=== PATIENT | female | born 1960 | race Caucasian/White ===

== ENCOUNTER 2021-07-05 17:23 | Outpatient (CLI) | payer OTHER ==
[2021-07-05 19:55] LABS: BASOPHILS # (AUTO) 0.1 10^3/uL (0.0-0.1); BASOPHILS % (AUTO) 1.1 %; EOSINOPHILS # (AUTO) 0.2 10^3/uL (0.0-0.7); EOSINOPHILS % (AUTO) 3.2 %; HCT - HEMATOCRIT 41.5 % (37.0-47.0); HGB - HEMOGLOBIN 13.8 g/dL (12.0-16.0); LYMPHOCYTES # (AUTO) 1.2 10^3/uL (1.5-3.5); LYMPHOCYTES % (AUTO) 24.7 %; MEAN CORPUSCULAR HEMOGLOBIN 32.5 pg (27.0-31.0); MEAN CORPUSCULAR HGB CONC 33.3 g/dL (32.0-36.0); MEAN CORPUSCULAR VOLUME 97.6 fL (81.0-99.0); MEAN PLATELET VOLUME 11.1 fL (7.9-10.8); MONOCYTES # (AUTO) 0.4 10^3/uL (0.0-1.0); MONOCYTES % (AUTO) 7.4 %; NEUTROPHILS % (AUTO) 63.4 %; PLT - PLATELET COUNT 214 10^3/uL (130-450); RED BLOOD COUNT 4.25 10^6/uL (4.20-5.40); WHITE BLOOD COUNT 4.7 x10^3/uL (4.8-10.8)
[2021-07-05 20:01] LABS: ALBUMIN 4.3 g/dL (3.2-5.5); ALBUMIN/GLOBULIN RATIO 1.6 (1.0-2.2); CALCIUM 9.3 mg/dL (8.5-10.3); CREATININE 0.7 mg/dL (0.4-1.0); POTASSIUM 3.8 mmol/L (3.5-5.0)
[2021-07-07 12:52] LABS: HEPATITIS C ANTIBODY NON-REACTIVE (NON-REACTIVE)
== END 2021-07-05 17:24 | disposition home or self-care (01) ==
LOC: LAB.S 17:23
PROVIDERS: ATTEND Orthopaedic Surgery
DX: Z01.812 Encounter for preprocedural laboratory examination (principal)
CPT/HCPCS: 36415; 80053; 85025; 86803

== ENCOUNTER 2021-07-06 12:18 | Outpatient (CLI) | payer OTHER | END 2021-07-06 12:19 | disposition home or self-care (01) | LOC: LAB.N 12:18 | PROVIDERS: ATTEND Orthopaedic Surgery | DX: Z01.812 Encounter for preprocedural laboratory examination (principal); Z20.822 Contact with and (suspected) exposure to COVID-19 ==

== ENCOUNTER 2021-09-20 14:25 | Emergency (ER) | payer MEDICARE, OTHER ==
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
[2021-09-20] MEDS ORDERED: KETOROLAC 30 MG/ML VIAL IM STA (14:52)
[2021-09-20] MEDS ORDERED: ACETAMINOPHEN 325 MG TABLET PO STA (14:52)
--- NOTE | 2021-09-20 15:50 | CT Report ---
PROCEDURE: LUMBAR SPINE WO INDICATIONS: fall yesterday - lumbar/sacral pain TECHNIQUE: Noncontrast 3 mm thick sections acquired from the T12 level to the sacrum. Sagittal and coronal refo rmats were constructed. For radiation dose reduction, the following was used: automated exposure co ntrol, adjustment of mA and/or kV according to patient size. COMPARISON: None. FINDINGS: Image quality: Excellent. Bones: There is normal bony alignment. No acute vertebral body compression fractures. No suspiciou s lytic or blastic bony lesions. Central spinal caliber is of normal overall caliber. Soft tissues: Prevertebral and paraspinous soft tissues are within normal limits. The included unenha nced intra-abdominal and retroperitoneal visceral structures demonstrate no acute finding. Partially visualized lung bases are clear. T12-L1: No spinal canal or neural foraminal stenosis. L1-L2: No spinal canal or neural foraminal stenosis. L2-L3: Diffuse disc bulge and a superimposed broad-based posterior disc protrusion flattens and in dents the ventral thecal sac. There may be moderate subarticular zone stenosis on the right. Foramina l components of the disc bulge and facet hypertrophy combine to produce mild bilateral neural foramin al stenosis. L3-L4: Diffuse disc bulge flattens the ventral thecal sac. Foraminal components of the disc bulge a nd facet hypertrophy combine to produce mild bilateral neural foraminal stenosis. L4-L5: Diffuse disc bulge flattens the ventral thecal sac. Foraminal components of the disc bulge a nd facet hypertrophy combine to produce mild bilateral neural foraminal stenosis. L5-S1: Diffuse disc bulge. No mass effect upon the traversing S1 nerve roots. Mild bilateral neural foraminal narrowing. IMPRESSION: Mild neural foraminal narrowing in the lower lumbar spine. No acute finding. Reviewed by: Parth Ocasio MD on 09/20/2021 2:49 PM [facility] Approved by: Parth Ocasio MD on 09/20/2021 2:49 PM [facility] Station ID: [id number]
[2021-09-20 16:04] VITALS: BP 142/68
== END 2021-09-20 16:09 | disposition home or self-care (01) ==
LOC: ED 14:25
DX: S30.0XXA Contusion of lower back and pelvis, initial encounter (principal); S00.33XA Contusion of nose, initial encounter; S80.812A Abrasion, left lower leg, initial encounter; S80.811A Abrasion, right lower leg, initial encounter; V00.848A Other accident with standing micro-mobility pedestrian conveyance, initial encounter; Y93.89 Activity, other specified; Y92.410 Unspecified street and highway as the place of occurrence of the external cause; M51.27 Other intervertebral disc displacement, lumbosacral region; Z87.891 Personal history of nicotine dependence
CPT/HCPCS: 72131; 96372; 99282; 99284; A9270

== ENCOUNTER 2023-02-14 15:17 | Emergency (ER) | payer MEDICARE, OTHER ==
--- NOTE | 2023-02-14 15:37 | ED Physician Documentation ---
PD HPI OPHTHO - Stated complaint Stated Complaint: RT EYE DOG BITE - Chief complaint Chief Complaint: Heent - History obtained from History obtained from: Patient - History of Present Illness Timing - onset: Last night (about 3 am. she states her dog was on the bed and patient got up from bed, and as was getting back to it, disturbed the dog from sleep and it nipped single time to her, causing lacerations to right cheek and lower eyelid. She states saw "just white" for few seconds, then blurred vision. normal now.) Timing - details: Abrupt onset Location: Right (upper cheek and lower eyelid.) Associated symptoms: No: Discharge, Photophobia, Loss of vision Similar symptoms before: Has not had sx before Review of Systems Constitutional: denies: Fever, Chills Eyes: denies: Loss of vision Neurologic: denies: Difficulty speaking, Altered mental status, Headache PD PAST MEDICAL HISTORY - Past Medical History Cardiovascular: None Musculoskeletal: None - Past Surgical History Past Surgical History: Yes General: Cholecystectomy, Appendectomy - Present Medications Home Medications: Ambulatory Orders Medication Instructions Recorded Confirmed Oxycodone HCl/Acetaminophen 1 each PO Q6H PRN #12 tablet 09/20/21 [Percocet 5-325 mg Tablet] Amox/Clav 875/125 [Augmentin] 1 each PO Q12H 5 Days #10 tablet 02/14/23 Ciprofloxacin HCl [Ciloxan] 1 applic RIGHTEYE QID 5 Days #3.5 02/14/23 gm - Allergies Allergies/Adverse Reactions: Allergies Allergy/AdvReac Type Severity Reaction Status Date / Time No Known Drug Allergies Allergy Verified 02/14/23 15:34 - Social History Does the pt smoke?: Yes Smoking Status: Former smoker Does the pt drink ETOH?: Yes Does the pt have substance abuse?: No - Immunizations Immunizations are current?: Yes PD ED PE NORMAL - Vitals Vital signs reviewed: Yes - General General: Alert and oriented X 3, No acute distress, Well developed/nourished - HEENT HEENT: PERRL, EOMI, Other (the upper cheek with abrasions and small 1 cm lac that is fairly well in place. Right lower eyelid with laceration in the middle, about 1/2 cm but it does cause forked split of the eyelid margin. ) - Neck Neck: Supple, no meningeal sign, No adenopathy PD ED PE EXPANDED - Eyes Eyes: Visual acuity - see nn, PERRL, EOMI, Corneal abrasion (superficial dye uptake at 7 ockock psotion, linear about 3-4 mm length.), Fluorescein uptake, Anterior chambers clear, Normal fundi. No: Hyphema, Retinal hemorrhage Results - Vitals Vitals: Vital Signs - 24 hr 02/14/23 02/14/23 02/14/23 15:30 15:34 16:04 Temperature 37.1 C 37.1 C Heart Rate 115 H 115 H 100 Respiratory 18 18 16 Rate Blood Pressure 171/88 H 171/88 H 150/80 H O2 Saturation 100 100 100 Oxygen O2 Source Room air PD Medical Decision Making - ED course Complexity details: considered differential, d/w patient, d/w data virtualization consultant (talked with Brett Frances, ophthalmology, who is available to see patient in office in 2 days. To give abx meanwhile and reassess in 2 days, for delayed primary closure. ) ED course: with patient consent, I took picture of her eyelid/cheek and texted to Dr. Santiago iqbal, without any identifiers and closeup so not able to distinguish whole face. Departure - Departure Disposition: Home, Self Care Clinical Impression: Eyelid laceration, Corneal abrasion, Dog bite Condition: Stable Record reviewed to determine appropriate education?: Yes Follow-Up: Brett Frances MD [Provider Admit Priv/Credential] - Prescriptions: Amox/Clav 875/125 [Augmentin] 1 each PO Q12H 5 Days #10 tablet Ciprofloxacin HCl [Ciloxan] 1 applic RIGHTEYE QID 5 Days #3.5 gm Comments: I talked to one of our well servicing rig operator on staff, Brett Frances, who said he is able to repair your eyelid. Because of it being a contaminated injury (dog bite), a delayed primary closure with some antibiotics over the next few days is preferable to have less likelihood for infection. Call his office today or first thing in the morning. He will let the office know that he wants you to be seen on Sunday at the [facility]. Let the office know that you were seen here in the ER and we talked with Dr. Frances with those instructions. Dr. Frances will see you Sunday in the office and discuss/do repair, judged on how it is looking/ concern for infection still/ etc (a closed contmainated wound has higher chance of infection, actually). Ciprofloxacin ophthalmic antibiotic ointment and Augmentin oral antibiotic to reduce chance of infection. Clean the area gently with soap and water (not on the eye itself but the lid and cheek). Do this 2-3 times daily. You can use the ophthalmic ointment even on the cheek lightly as a moisturizer for the wound. Tylenol or ibuprofen or both if needed for pains. I transmitted your prescriptions to [facility] pharmacy in [place]. Discharge Date/Time: 02/14/23 16:30
[2023-02-14] MEDS ORDERED: AMOX/CLAV 875 MG/125 MG TABLET PO STA (16:05)
[2023-02-14] MEDS ORDERED: IBUPROFEN 600 MG TABLET PO STA (16:05)
[2023-02-14 16:11] VITALS: BP 150/80
== END 2023-02-14 16:30 | disposition home or self-care (01) ==
LOC: ED 15:17
DX: S01.411A Laceration without foreign body of right cheek and temporomandibular area, initial encounter (principal); S01.111A Laceration without foreign body of right eyelid and periocular area, initial encounter; S05.01XA Injury of conjunctiva and corneal abrasion without foreign body, right eye, initial encounter; W54.0XXA Bitten by dog, initial encounter; Y93.89 Activity, other specified; Y92.003 Bedroom of unspecified non-institutional (private) residence as the place of occurrence of the external cause; Z87.891 Personal history of nicotine dependence
CPT/HCPCS: 99282; 99284; A9270

== ENCOUNTER 2023-02-24 16:31 | Emergency (ER) | payer MEDICARE, OTHER ==
[2023-02-24] MEDS ORDERED: ONDANSETRON 4 MG/2 ML VIAL IVP STA (16:51)
[2023-02-24] MEDS ORDERED: iohexoL-300 100 ML VIAL ONE (17:02)
[2023-02-24 17:04] LABS: BASOPHILS % (AUTO) 0.6 %; EOSINOPHILS # (AUTO) 0.1 10^3/uL (0.0-0.7); EOSINOPHILS % (AUTO) 1.6 %; HCT - HEMATOCRIT 45.5 % (37.0-47.0); HGB - HEMOGLOBIN 15.1 g/dL (12.0-16.0); LYMPHOCYTES # (AUTO) 0.7 10^3/uL (1.5-3.5); LYMPHOCYTES % (AUTO) 11.3 %; MEAN CORPUSCULAR HEMOGLOBIN 31.9 pg (27.0-31.0); MEAN CORPUSCULAR HGB CONC 33.2 g/dL (32.0-36.0); MEAN PLATELET VOLUME 9.8 fL (7.9-10.8); MONOCYTES # (AUTO) 0.5 10^3/uL (0.0-1.0); NEUTROPHILS # (AUTO) 5.1 10^3/uL (1.5-6.6); NEUTROPHILS % (AUTO) 79.3 %; PLT - PLATELET COUNT 209 10^3/uL (130-450); RED BLOOD COUNT 4.74 10^6/uL (4.20-5.40); RED CELL DISTRIBUTION WIDTH 11.9 % (12.0-15.0); WHITE BLOOD COUNT 6.4 x10^3/uL (4.8-10.8)
--- NOTE | 2023-02-24 17:10 | ED Physician Documentation ---
History of Present Illness - Stated complaint Stated Complaint: DIZZY/NAUSEA/VOMIT - Chief complaint Chief Complaint: Neuro - History obtained from History obtained from: Patient - History of Present Illness Pain level max: 0 Pain level now: 0 - Additonal information Additional information: 62-year-old female presents to the emergency department stating that she has had intermittent dizzy spells for the past several weeks. She states that they only last for a few minutes at a time. She feels an intense spinning, occasional nausea and vomiting. She states that she has a history of a left-sided acoustic neuroma, last MRI was approximately 6 years ago. She states that she was told the acoustic neuroma had "decalcified" and broken apart. She states that she has been having more headaches over the past several months. She states that she lost most of her sense of taste about a year ago. Patient states that she currently does not have a PCP. Her last colonoscopy was about 10 years ago. She complains of nausea today. Review of Systems Constitutional: denies: Fever, Chills Cardiac: denies: Chest pain / pressure, Palpitations Respiratory: denies: Cough GI: reports: Nausea Skin: denies: Rash Musculoskeletal: denies: Neck pain, Back pain Neurologic: denies: Headache PD PAST MEDICAL HISTORY - Past Medical History Cardiovascular: None Musculoskeletal: None - Past Surgical History Past Surgical History: Yes General: Cholecystectomy, Appendectomy - Present Medications Home Medications: Ambulatory Orders Medication Instructions Recorded Confirmed Oxycodone HCl/Acetaminophen 1 each PO Q6H PRN #12 tablet 09/20/21 [Percocet 5-325 mg Tablet] Amox/Clav 875/125 [Augmentin] 1 each PO Q12H 5 Days #10 tablet 02/14/23 Ciprofloxacin HCl [Ciloxan] 1 applic RIGHTEYE QID 5 Days #3.5 02/14/23 gm Meclizine HCl [Motion Sickness] 25 mg PO Q6H PRN #30 tablet 02/24/23 Ondansetron Odt [Zofran] 4 mg TL Q6H PRN #10 tablet 02/24/23 - Allergies Allergies/Adverse Reactions: Allergies Allergy/AdvReac Type Severity Reaction Status Date / Time No Known Drug Allergies Allergy Verified 02/24/23 16:46 - Social History Does the pt smoke?: Yes Smoking Status: Former smoker Does the pt drink ETOH?: Yes Does the pt have substance abuse?: No - Immunizations Immunizations are current?: Yes PD ED PE NORMAL - Vitals Vital signs reviewed: Yes - General General: Alert and oriented X 3, No acute distress, Well developed/nourished - HEENT HEENT: PERRL, Ears normal, Moist mucous membranes, Pharynx benign - Neck Neck: Supple, no meningeal sign - Cardiac Cardiac: RRR, Strong equal pulses - Respiratory Respiratory: No respiratory distress, Clear bilaterally - Abdomen Abdomen: Soft, Non tender, Non distended - Back Back: No CVA TTP, No spinal TTP - Derm Derm: Warm and dry - Extremities Extremities: No edema, No calf tenderness / cord - Neuro Neuro: Alert and oriented X 3, 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, No motor deficit, No sensory deficit, Normal speech, Other (normal gait, normal cerebellar tests) Eye Opening: Spontaneous Motor: Obeys Commands Verbal: Oriented GCS Score: 15 Results - Vitals Vitals: Vital Signs - 24 hr 02/24/23 02/24/23 16:41 18:49 Temperature 36.5 C Heart Rate 93 84 Respiratory 16 16 Rate Blood Pressure 184/82 H 150/77 H O2 Saturation 100 100 Oxygen O2 Source Room air - Labs Labs: Laboratory Tests 02/24/23 02/24/23 16:59 16:59 WBC 6.4 RBC 4.74 Hgb 15.1 Hct 45.5 MCV 96.0 MCH 31.9 H MCHC 33.2 RDW 11.9 L Plt Count 209 MPV 9.8 Neut # (Auto) 5.1 Lymph # (Auto) 0.7 L Mcclain # (Auto) 0.5 Eos # (Auto) 0.1 Baso # (Auto) 0.0 Absolute Nucleated RBC 0.00 Nucleated RBC % 0.0 Sodium 141 Potassium 3.9 Chloride 104 Carbon Dioxide 27 Anion Gap 10.0 BUN 22 H Creatinine 0.7 Estimated GFR (MDRD) 85 L Glucose 126 H Calcium 9.7 Total Bilirubin 1.2 H AST 20 ALT 22 Alkaline Phosphatase 46 Total Protein 7.3 Albumin 4.6 Globulin 2.7 Albumin/Globulin Ratio 1.7 Lipase 55 H - Rads (name of study) CTA head Relevant Findings:: Final report received, See rad report CTA neck Relevant Findings:: Final report received, See rad report PD Medical Decision Making - ED course Complexity details: reviewed results, re-evaluated patient, considered differential, d/w patient, d/w family ED course: Patient with symptoms consistent with BPPV, feels much better after Zofran, IV fluids and meclizine. Does not have any nystagmus here. Normal cerebellar test. Ambulating without difficulty. MRI is unavailable today or tomorrow, CT angiogram of the head and neck did not show any acute abnormalities. Recommend she follow-up with the PCP for MRI of her known acoustic neuroma. We will place her on meclizine and Zofran. She also had an elevated BUN to creatinine ratio, likely mild dehydration from the vomiting. Tolerating p.o. without difficulty here. Patient counseled regarding signs and symptoms for which I believe and urgent re-evaluation would be necessary. Patient with good understanding of and agreement to plan and is comfortable going home at this time This document was made in part using voice recognition software. While efforts are made to proofread this document, sound alike and grammatical errors may occur. Departure - Departure Disposition: 01 Home, Self Care Clinical Impression: Vertigo Condition: Good Instructions: ED Vertigo Unspecified Follow-Up: [facility] [place] [Provider Group] [facility] [place] [Provider Group] Primary/Walk In [place] [Provider Group] [facility] In [facility] [Provider Group] Alie Scott MD [Provider Admit Priv/Credential] - [facility] [Provider Group] Prescriptions: Meclizine HCl [Motion Sickness] 25 mg PO Q6H PRN #30 tablet PRN Reason: Dizziness Ondansetron Odt [Zofran] 4 mg TL Q6H PRN #10 tablet PRN Reason: Nausea / Vomiting Comments: Please follow-up with your primary care provider for further care. Please return if you worsen. It is recommended that you have an MRI to evaluate for any changes with your acoustic neuroma. MRI is not available here today or tomorrow. Your CT scan otherwise does not show any acute abnormalities. Your blood work does not show any acute changes either other than mild dehydration. Your prescriptions were sent to [facility] in [place]. EXAM: [id number] CT/HEADANG ([id number]) PROCEDURE: ANGIO HEAD W/WO INDICATIONS: h/o L acoustic neuroma, dizzy, vomiting CONTRAST: 100ml omni 300 TECHNIQUE: Precontrast 4.5 mm thick angled axial sections acquired from the foramen magnum to the vertex. After the administration of intravenous contrast, 1 mm thick sections acquired through the [place]. Postcontrast 4.5 mm thick sections then re-acquired from the foramen magnum to the vertex. 3-dimensional dpfdemo-gotyvgzbk-vyqnqbjrgj (MIP) and/or volume rendering reformats were acquired of the central intracranial vasculature. For radiation dose reduction, the following was used: automated exposure control, adjustment of mA and/or kV according to patient size. COMPARISON: None FINDINGS: Image quality: Excellent. Anterior circulation: Intracranial internal carotid arteries are normal in size and flow. The flow within the paired anterior cerebral arteries is normal and symmetric. The flow within the middle cerebral arteries is normal and symmetric. The anterior communicating artery is seen. No aneurysms are seen. Posterior circulation: Persistent bilateral posterior circulation. Visuali zed portions of the vertebral arteries demonstrate normal caliber, and join to form a normal appearing basilar artery. Flow within the posterior cerebral arteries is normal and symmetric. No aneurysm s are seen. CSF spaces: Ventricles are normal in size and shape. Basal cisterns are patent. No extra-axial fluid collections. Brain: No midline shift. No intracranial bleeds or masses. Lucas-white matter interface appears intact. Skull and face: Calvarium and facial bones appear intact, without suspicious lesions. The left internal auditory canal appear slightly larger than the right Sinuses: Visualized sinuses and mastoids are clear. IMPRESSION: No acute intracranial findings. Normal CTA and CTV of the brain. Slight increased size of the left internal auditory canal when compared to the right. EXAM: [id number] CT/NECKANG ([id number]) PROCEDURE: ANGIO NECK W INDICATIONS: h/o L acoustic neuroma, dizzy, vomiting CONTRAST: 100ml omni 300 TECHNIQUE: After the administration of intravenous contrast, 1.5 mm axial sections acquired from the aortic arch to the [place]. Coronal 3-D maximum intensity projection (MIP) and/or volume rendering reformats were then performed. For radiation dose reduction, the following was used: automated exposure control, adjustment of mA and/or kV according to patient size. COMPARISON: CT head from same date. FINDINGS: Image quality: Excellent. Carotid system: The great vessels demonstrate a conventional anatomy as they arise from the aortic arch. The origins of the common carotid arteries appear patent. The common ca rotid arteries demonstrate normal calibers and courses. The bifurcation regions appear normal bilaterally. The internal carotid arteries demonstrate normal caliber and course. Posterior circulation: The origins of the vertebral arteries appear patent. The more superior portions of the vertebral arteries demonstrate normal course and caliber. They join to form a normal appearing basilar artery. Soft tissues: Visualized neck soft tissues demonstrate no suspicious abnormalities. The thyroid is normal in size and there are no incidental findings. Bones: No suspicious bony lesions. Visualized cervical spine appears normally aligned. IMPRESSION: No stenosis, occlusion, or aneurysm within the carotid or vertebral arteries. Discharge Date/Time: 02/24/23 19:39
[2023-02-24 17:17] LABS: ALBUMIN 4.6 g/dL (3.2-5.5); ALBUMIN/GLOBULIN RATIO 1.7 (1.0-2.2); BILIRUBIN,TOTAL 1.2 mg/dL (0.2-1.0); CALCIUM 9.7 mg/dL (8.5-10.3); CREATININE 0.7 mg/dL (0.4-1.0); POTASSIUM 3.9 mmol/L (3.5-5.0); TOTAL PROTEIN 7.3 g/dL (6.7-8.2)
[2023-02-24] MEDS ORDERED: iohexoL-300 100 ML VIAL IVP ONE (17:51)
[2023-02-24] MEDS ORDERED: SODIUM CHLORIDE 0.9% 1,000 ML IV STA (17:55)
[2023-02-24] MEDS ORDERED: MECLIZINE 12.5 MG TABLET PO STA (18:12)
--- NOTE | 2023-02-24 18:24 | CT Report ---
PROCEDURE: ANGIO HEAD W/WO INDICATIONS: h/o L acoustic neuroma, dizzy, vomiting CONTRAST: 100ml omni 300 TECHNIQUE: Precontrast 4.5 mm thick angled axial sections acquired from the foramen magnum to the vertex. Afte r the administration of intravenous contrast, 1 mm thick sections acquired through the [place] of [place] is. Postcontrast 4.5 mm thick sections then re-acquired from the foramen magnum to the vertex. 3-di mensional rubdkup-mqxjagylj-uqlfipkybz (MIP) and/or volume rendering reformats were acquired of the c entral intracranial vasculature. For radiation dose reduction, the following was used: automated ex posure control, adjustment of mA and/or kV according to patient size. COMPARISON: None FINDINGS: Image quality: Excellent. Anterior circulation: Intracranial internal carotid arteries are normal in size and flow. The flow within the paired anterior cerebral arteries is normal and symmetric. The flow within the middle cer ebral arteries is normal and symmetric. The anterior communicating artery is seen. No aneurysms are seen. Posterior circulation: Persistent bilateral posterior circulation. Visualized portions of the vertebral arteries demonstrate normal caliber, and join to form a normal appearing basilar artery. F low within the posterior cerebral arteries is normal and symmetric. No aneurysms are seen. CSF spaces: Ventricles are normal in size and shape. Basal cisterns are patent. No extra-axial flu id collections. Brain: No midline shift. No intracranial bleeds or masses. Lucas-white matter interface appears int act. Skull and face: Calvarium and facial bones appear intact, without suspicious lesions. The left inte rnal auditory canal appear slightly larger than the right Sinuses: Visualized sinuses and mastoids are clear. IMPRESSION: No acute intracranial findings. Normal CTA and CTV of the brain. Slight increased size of the left internal auditory canal when compared to the right. Reviewed by: Mike Ocasio MD on 02/24/2023 5:22 PM DANIEL Approved by: Mike Ocasio MD on 02/24/2023 5:22 PM DANIEL Station ID: [id number]
--- NOTE | 2023-02-24 18:30 | CT Report ---
PROCEDURE: ANGIO NECK W INDICATIONS: h/o L acoustic neuroma, dizzy, vomiting CONTRAST: 100ml omni 300 TECHNIQUE: After the administration of intravenous contrast, 1.5 mm axial sections acquired from the aortic arch to the [place] of [place]. Coronal 3-D maximum intensity projection (MIP) and/or volume rendering ref ormats were then performed. For radiation dose reduction, the following was used: automated exposur e control, adjustment of mA and/or kV according to patient size. COMPARISON: CT head from same date. FINDINGS: Image quality: Excellent. Carotid system: The great vessels demonstrate a conventional anatomy as they arise from the aortic a [facility]. The origins of the common carotid arteries appear patent. The common carotid arteries demonstr ate normal calibers and courses. The bifurcation regions appear normal bilaterally. The internal ca rotid arteries demonstrate normal caliber and course. Posterior circulation: The origins of the vertebral arteries appear patent. The more superior porti ons of the vertebral arteries demonstrate normal course and caliber. They join to form a normal appe aring basilar artery. Soft tissues: Visualized neck soft tissues demonstrate no suspicious abnormalities. The thyroid is normal in size and there are no incidental findings. Bones: No suspicious bony lesions. Visualized cervical spine appears normally aligned. IMPRESSION: No stenosis, occlusion, or aneurysm within the carotid or vertebral arteries. Reviewed by: Mike Ocasio MD on 02/24/2023 5:29 PM DANIEL Approved by: Mike Ocasio MD on 02/24/2023 5:29 PM DANIEL Station ID: [id number]
[2023-02-24 18:50] VITALS: BP 150/77
== END 2023-02-24 19:39 | disposition home or self-care (01) ==
LOC: ED 16:31
DX: R42 Dizziness and giddiness (principal); Z87.891 Personal history of nicotine dependence
CPT/HCPCS: 36415; 70496; 70498; 80053; 83690; 85025; 96361; 96374; 99283; 99284; A9270; Q9967